=== PATIENT | female | born 2000 | race Two or more races ===

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

== ENCOUNTER 2022-09-10 23:20 | Emergency (ER) | payer SELFPAY ==
[~2022-09-10] VITALS: Ht 175.3 cm; Wt 60.0 kg
[2022-09-10 23:49] VITALS: BP 140/78
== END 2022-09-11 01:36 | disposition home or self-care (01) ==
LOC: ER 23:31
DX: Z53.21 Procedure and treatment not carried out due to patient leaving prior to being seen by health care provider (principal); J45.909 Unspecified asthma, uncomplicated

== ENCOUNTER 2022-11-11 06:11 | Observation (INO) | payer SELFPAY ==
[~2022-11-11] VITALS: Ht 175.3 cm; Wt 65.8 kg
[2022-11-11] MEDS ORDERED: PREN-52 MT (13:33)
== END 2022-11-11 10:30 | disposition home or self-care (01) ==
LOC: ER 06:26 → 8 EST LDRP 06:29
PROVIDERS: ADMIT Obstetrics & Gynecology; ATTEND Obstetrics & Gynecology
DX: O26.892 Other specified pregnancy related conditions, second trimester (principal); R10.30 Lower abdominal pain, unspecified; O36.8120 Decreased fetal movements, second trimester, not applicable or unspecified; O26.852 Spotting complicating pregnancy, second trimester; Z3A.26 26 weeks gestation of pregnancy; Z79.899 Other long term (current) drug therapy
CPT/HCPCS: 59025; 76805; G0378; 99281

== ENCOUNTER 2023-06-25 13:05 | Emergency (ER) | payer MEDICAID ==
[~2023-06-25] VITALS: Ht 170.2 cm; Wt 49.0 kg
[~2023-06-25 13:05] MED LIST: PREN-52 MT
[2023-06-25 13:14] VITALS: O2SAT 100
[2023-06-25 15:01] LABS: CHLORIDE 105 mEq/L (98-107); INDEX HEMOLYSI 1 (1-3); INDEX ICTERIC 1 (1-4); INDEX LIPEMIC 1 (1-3); POTASSIUM 3.2 mEq/L (3.5-5.1); SODIUM 138 mEq/L (136-145)
[2023-06-25 15:06] LABS: BASOPHILS % 2.6 % (0.0-2.0); EOSINOPHILS % 2.8 % (0.0-5.0); HEMATOCRIT. 31.4 % (36.0-48.0); HEMOGLOBIN. 10.5 g/dL (12.0-16.0); MEAN CORPUSCULAR HEMOGLOBIN 29.7 pg (28.0-32.0); MEAN CORPUSCULAR HGB CONC 33.6 g/dL (31.0-37.0); MEAN CORPUSCULAR VOLUME 88.5 fL (81.0-99.0); MEAN PLATELET VOLUME 8.1 fl (7.4-10.4); MONOCYTES % 10.2 % (2.0-8.0); NEUTROPHILS % 26.4 % (40.0-76.0); PLATELET 309 x1000/uL (130-400); RED BLOOD CELL COUNT 3.55 mill/uL (4.2-5.4); RED CELL DISTRIBUTION WIDTH 15.8 % (11.6-14.6); WHITE BLOOD COUNT 3.9 x1000/uL (4.5-11.0)
[2023-06-25 15:12] LABS: ALANINE AMINOTRANSFERASE 36 IU/L (13-61); ALBUMIN 3.3 g/dL (3.4-5.0); ASPARTATE AMINOTRANSFERASE 21 IU/L (15-37); B-HCG QUANTITATIVE 99 mIU/mL (<3); BILIRUBIN TOTAL 0.3 mg/dL (0.1-1.0); CALCIUM 8.7 mg/dL (8.5-10.1); CARBON DIOXIDE 28 mEq/L (21-32); GLUCOSE 92 mg/dL (70-105); PROTEIN TOTAL 7.8 g/dL (6.0-8.3); UREA NITROGEN BLOOD 14 mg/dL (7-21)
[2023-06-25 17:22] VITALS: BP 125/79; PULSE 98; RESP 18; TEMP 98.5
== END 2023-06-25 17:24 | disposition home or self-care (01) ==
LOC: ER 13:13
DX: O20.0 Threatened abortion (principal); Z3A.01 Less than 8 weeks gestation of pregnancy
CPT/HCPCS: 36415; 76801; 80053; 84702; 85025; 86850; 86900; 99284

== ENCOUNTER 2023-08-21 14:03 | Emergency (ER) | payer MEDICAID ==
[~2023-08-21] VITALS: Ht 177.8 cm; Wt 58.0 kg
[2023-08-21 14:37] VITALS: O2SAT 100
[2023-08-21] MEDS ORDERED: TRAM50TA3 MT (17:21)
[2023-08-21] MEDS ORDERED: TRAMADOL 50MG TABLET PO NR ×2 (17:30→18:00)
[2023-08-21 18:07] VITALS: BP 110/68; PULSE 90; RESP 20; TEMP 98.2
== END 2023-08-21 18:19 | disposition home or self-care (01) ==
LOC: ER 14:03
DX: M25.461 Effusion, right knee (principal); Z88.6 Allergy status to analgesic agent; V03.10XA Pedestrian on foot injured in collision with car, pick-up truck or van in traffic accident, initial encounter; Y93.89 Activity, other specified; Y92.89 Other specified places as the place of occurrence of the external cause; Y99.8 Other external cause status
CPT/HCPCS: 73562; 99283; Z7610

== ENCOUNTER 2024-02-29 02:07 | Emergency (ER) | payer MEDICAID ==
[~2024-02-29] VITALS: Ht 172.7 cm; Wt 58.2 kg
[~2024-02-29 02:07] MED LIST changes: +TRAM50TA3 MT
[2024-02-29 02:30] LABS: EOSINOPHILS % 1.4 % (0.0-5.0); HEMOGLOBIN. 10.6 g/dL (12.0-16.0); LYMPHOCYTES % 35.6 % (20.0-50.0); MEAN CORPUSCULAR HEMOGLOBIN 30.8 pg (28.0-32.0); MEAN CORPUSCULAR HGB CONC 33.3 g/dL (31.0-37.0); MEAN CORPUSCULAR VOLUME 92.5 fL (81.0-99.0); MEAN PLATELET VOLUME 8.2 fl (7.4-10.4); PLATELET 229 x1000/uL (130-400); RED BLOOD CELL COUNT 3.46 mill/uL (4.2-5.4); RED CELL DISTRIBUTION WIDTH 14.1 % (11.6-14.6); WHITE BLOOD COUNT 5.5 x1000/uL (4.5-11.0)
[2024-02-29 02:35] LABS: CHLORIDE 102 mEq/L (98-107); POTASSIUM 3.7 mEq/L (3.5-5.1); SODIUM 137 mEq/L (136-145)
[2024-02-29 02:36] LABS: CALCIUM 9.1 mg/dL (8.7-10.4); CARBON DIOXIDE 27 mEq/L (21-32)
[2024-02-29 02:41] LABS: CREATININE 0.7 mg/dL (0.6-1.0); GLUCOSE 103 mg/dL (70-105); UREA NITROGEN BLOOD 15 mg/dL (9-23)
[2024-02-29 02:43] LABS: ALANINE AMINOTRANSFERASE 13 IU/L (10-49); ALBUMIN 3.7 g/dL (3.2-4.8); ASPARTATE AMINOTRANSFERASE 30 IU/L (<34)
[2024-02-29 02:44] LABS: BILIRUBIN TOTAL 0.3 mg/dL (0.1-1.0); PROTEIN TOTAL 6.9 g/dL (6.0-8.3)
[2024-02-29 03:04] LABS: BILIRUBIN DIRECT < 0.1 mg/dL (<=3.0)
[2024-02-29 03:24] VITALS: BP 115/73; PULSE 80; RESP 16; TEMP 98.1; O2SAT 100
[2024-02-29 03:47] LABS: CLARITY URINE CLEAR (CLEAR); COLOR URINE YELLOW (YELLOW); GLUCOSE URINE NEGATIVE (NEGATIVE); KETONES URINE NEGATIVE (NEGATIVE); LEUKOCYTE ESTERASE URINE TRACE (NEGATIVE); NITRITE URINE NEGATIVE (NEGATIVE); OCCULT BLOOD URINE NEGATIVE (NEGATIVE); PROTEIN URINE NEGATIVE (NEGATIVE); SPECIFIC GRAVITY URINE 1.022 (1.005-1.030); UROBILINOGEN URINE 0.2 E.U./dL (0.2-1.0)
[2024-02-29 04:51] LABS: SQUAMOUS EPITHELIAL CELL URINE 1+ /lpf (RARE/1+)
[2024-02-29 04:54] LABS: RBC URINE NONE SEEN /hpf (0-2)
[2024-02-29 04:55] LABS: BACTERIA URINE 1+; TRICHOMONAS URINE 1+
== END 2024-02-29 03:56 | disposition home or self-care (01) ==
LOC: ER 02:07
DX: O26.891 Other specified pregnancy related conditions, first trimester (principal); J45.909 Unspecified asthma, uncomplicated; D57.80 Other sickle-cell disorders without crisis; Z88.6 Allergy status to analgesic agent; Z3A.12 12 weeks gestation of pregnancy; Z88.8 Allergy status to other drugs, medicaments and biological substances; Z98.890 Other specified postprocedural states
CPT/HCPCS: 36415; 76801; 80048; 80076; 81003; 84702; 85025; 99284

== ENCOUNTER 2024-03-10 04:57 | Emergency (ER) | payer MEDICAID ==
[~2024-03-10] VITALS: Ht 180.3 cm; Wt 64.0 kg
[2024-03-10 05:03] VITALS: BP 116/74; TEMP 97.9; O2SAT 100
[2024-03-10 05:29] VITALS: PULSE 88; RESP 18
[2024-03-10] MEDS ORDERED: ALBUTEROL (0.5%) 2.5MG/0.5ML NEB HHN ONE (05:30)
[2024-03-10 05:31] LABS: BASOPHILS % 1.2 % (0.0-2.0); CLARITY URINE CLOUDY (CLEAR); COLOR URINE YELLOW (YELLOW); EOSINOPHILS % 1.4 % (0.0-5.0); GLUCOSE URINE NEGATIVE (NEGATIVE); HEMATOCRIT. 32.4 % (36.0-48.0); KETONES URINE NEGATIVE (NEGATIVE); LEUKOCYTE ESTERASE URINE 1+ (NEGATIVE); MEAN CORPUSCULAR HEMOGLOBIN 31.3 pg (28.0-32.0); MEAN CORPUSCULAR HGB CONC 33.9 g/dL (31.0-37.0); MEAN CORPUSCULAR VOLUME 92.2 fL (81.0-99.0); MEAN PLATELET VOLUME 8.5 fl (7.4-10.4); MONOCYTES % 9.5 % (2.0-8.0); NEUTROPHILS % 57.9 % (40.0-76.0); NITRITE URINE NEGATIVE (NEGATIVE); OCCULT BLOOD URINE NEGATIVE (NEGATIVE); PH URINE 5.5 (4.5-8.0); PLATELET 278 x1000/uL (130-400); PROTEIN URINE NEGATIVE (NEGATIVE); RED BLOOD CELL COUNT 3.51 mill/uL (4.2-5.4); RED CELL DISTRIBUTION WIDTH 13.3 % (11.6-14.6); SPECIFIC GRAVITY URINE 1.029 (1.005-1.030); UROBILINOGEN URINE 0.2 E.U./dL (0.2-1.0); WHITE BLOOD COUNT 7.5 x1000/uL (4.5-11.0)
[2024-03-10 05:36] LABS: CHLORIDE 102 mEq/L (98-107); POTASSIUM 3.6 mEq/L (3.5-5.1); SODIUM 133 mEq/L (136-145)
[2024-03-10 05:37] LABS: CALCIUM 9.1 mg/dL (8.7-10.4); CARBON DIOXIDE 25 mEq/L (21-32)
[2024-03-10 05:42] LABS: CREATININE 0.6 mg/dL (0.6-1.0); GLUCOSE 86 mg/dL (70-105); UREA NITROGEN BLOOD 12 mg/dL (9-23)
[2024-03-10 05:44] LABS: ALANINE AMINOTRANSFERASE 11 IU/L (10-49); ALBUMIN 4.2 g/dL (3.2-4.8); ASPARTATE AMINOTRANSFERASE 17 IU/L (<34); BILIRUBIN TOTAL 0.3 mg/dL (0.1-1.0); PROTEIN TOTAL 7.6 g/dL (6.0-8.3)
[2024-03-10 06:23] LABS: SQUAMOUS EPITHELIAL CELL URINE 1+ /lpf (RARE/1+)
[2024-03-10 06:24] LABS: BACTERIA URINE TRACE; MUCUS URINE 2+ /lpf (< = 2+)
== END 2024-03-10 07:17 | disposition left against medical advice (07) ==
LOC: ER 05:06
DX: O26.899 Other specified pregnancy related conditions, unspecified trimester (principal); O99.011 Anemia complicating pregnancy, first trimester; J45.909 Unspecified asthma, uncomplicated; Z3A.13 13 weeks gestation of pregnancy; Z88.6 Allergy status to analgesic agent
CPT/HCPCS: 36415; 76801; 80053; 81003; 81025; 85025; 99284

== ENCOUNTER 2024-04-13 04:10 | Emergency (ER) | payer MEDICAID ==
[~2024-04-13] VITALS: Ht 180.3 cm; Wt 62.5 kg
[2024-04-13 04:16] VITALS: BP 119/74; RESP 15; TEMP 98.7; O2SAT 98
[2024-04-13 04:19] VITALS: PULSE 102
[2024-04-13 04:37] LABS: BASOPHILS % 0.9 % (0.0-2.0); EOSINOPHILS % 2.7 % (0.0-5.0); HEMATOCRIT. 33.1 % (36.0-48.0); LYMPHOCYTES % 31.3 % (20.0-50.0); MEAN CORPUSCULAR HEMOGLOBIN 31.2 pg (28.0-32.0); MEAN CORPUSCULAR HGB CONC 33.2 g/dL (31.0-37.0); MEAN CORPUSCULAR VOLUME 94.2 fL (81.0-99.0); MEAN PLATELET VOLUME 8.4 fl (7.4-10.4); MONOCYTES % 10.8 % (2.0-8.0); NEUTROPHILS % 54.3 % (40.0-76.0); PLATELET 189 x1000/uL (130-400); RED BLOOD CELL COUNT 3.51 mill/uL (4.2-5.4); RED CELL DISTRIBUTION WIDTH 14.3 % (11.6-14.6); WHITE BLOOD COUNT 6.1 x1000/uL (4.5-11.0)
[2024-04-13 04:47] LABS: CHLORIDE 104 mEq/L (98-107); POTASSIUM 3.4 mEq/L (3.5-5.1); SODIUM 136 mEq/L (136-145)
[2024-04-13 04:48] LABS: CARBON DIOXIDE 27 mEq/L (21-32)
[2024-04-13 04:48] LABS: UCG KIT LOT# 840181; UCG SCREEN POSITIVE
[2024-04-13 04:49] LABS: CALCIUM 8.9 mg/dL (8.7-10.4)
[2024-04-13 04:49] LABS: CLARITY URINE CLEAR (CLEAR); COLOR URINE YELLOW (YELLOW); GLUCOSE URINE NEGATIVE (NEGATIVE); KETONES URINE TRACE (NEGATIVE); LEUKOCYTE ESTERASE URINE NEGATIVE (NEGATIVE); NITRITE URINE NEGATIVE (NEGATIVE); OCCULT BLOOD URINE NEGATIVE (NEGATIVE); PROTEIN URINE NEGATIVE (NEGATIVE); SPECIFIC GRAVITY URINE 1.025 (1.005-1.030)
[2024-04-13 04:53] LABS: CREATININE 0.7 mg/dL (0.6-1.0); GLUCOSE 68 mg/dL (70-105); UREA NITROGEN BLOOD 8 mg/dL (9-23)
== END 2024-04-13 09:35 | disposition left against medical advice (07) ==
LOC: ER 04:10
DX: O26.892 Other specified pregnancy related conditions, second trimester (principal); R10.30 Lower abdominal pain, unspecified; R51.9 Headache, unspecified; Z3A.18 18 weeks gestation of pregnancy; Z53.21 Procedure and treatment not carried out due to patient leaving prior to being seen by health care provider
CPT/HCPCS: 36415; 76805; 80048; 81003; 81025; 85025

== ENCOUNTER 2024-06-22 06:51 | Emergency (ER) | payer MEDICAID ==
[~2024-06-22] VITALS: Ht 165.1 cm; Wt 60.0 kg
[2024-06-22 06:57] VITALS: BP 116/71; PULSE 104; RESP 18; TEMP 98.1; O2SAT 99
[2024-06-22] MEDS ORDERED: PREDNISONE 20MG TABLET PO STA (06:57)
[2024-06-22] MEDS ORDERED: IPRATROPIUM BROMIDE (0.02%) 0.5MG/2.5ML NEB HHN STA (06:57)
[2024-06-22] MEDS ORDERED: ALBUTEROL (0.083%) 2.5MG/3ML NEB HHN STA (06:57)
== END 2024-06-22 07:16 | disposition left against medical advice (07) ==
LOC: ER 06:51
DX: O99.513 Diseases of the respiratory system complicating pregnancy, third trimester (principal); O26.892 Other specified pregnancy related conditions, second trimester; R06.02 Shortness of breath; Z88.6 Allergy status to analgesic agent; Z3A.28 28 weeks gestation of pregnancy
CPT/HCPCS: 99283

== ENCOUNTER 2024-07-11 09:49 | Emergency (ER) | payer MEDICAID ==
[~2024-07-11] VITALS: Ht 165.1 cm; Wt 70.0 kg
[2024-07-11 10:07] VITALS: O2SAT 99
[2024-07-11 10:37] LABS: BASOPHILS % 0.8 % (0.0-2.0); EOSINOPHILS % 3.2 % (0.0-5.0); HEMATOCRIT. 33.8 % (36.0-48.0); HEMOGLOBIN. 11.7 g/dL (12.0-16.0); LYMPHOCYTES % 30.2 % (20.0-50.0); MEAN CORPUSCULAR HEMOGLOBIN 32.6 pg (28.0-32.0); MEAN CORPUSCULAR HGB CONC 34.6 g/dL (31.0-37.0); MEAN CORPUSCULAR VOLUME 94.2 fL (81.0-99.0); MONOCYTES % 13.4 % (2.0-8.0); NEUTROPHILS % 52.4 % (40.0-76.0); PLATELET 192 x1000/uL (130-400); RED BLOOD CELL COUNT 3.59 mill/uL (4.2-5.4); RED CELL DISTRIBUTION WIDTH 13.2 % (11.6-14.6); WHITE BLOOD COUNT 6.1 x1000/uL (4.5-11.0)
[2024-07-11 10:44] LABS: CHLORIDE 103 mEq/L (98-107); POTASSIUM 3.7 mEq/L (3.5-5.1); SODIUM 137 mEq/L (136-145)
[2024-07-11 10:45] LABS: CALCIUM 8.6 mg/dL (8.7-10.4); CARBON DIOXIDE 28 mEq/L (21-32)
[2024-07-11 10:50] LABS: CREATININE 0.6 mg/dL (0.6-1.0); GLUCOSE 96 mg/dL (70-105)
[2024-07-11 10:52] LABS: ALANINE AMINOTRANSFERASE 8 IU/L (10-49); ALBUMIN 3.4 g/dL (3.2-4.8); ASPARTATE AMINOTRANSFERASE 14 IU/L (<34)
[2024-07-11 10:53] LABS: BILIRUBIN TOTAL 0.3 mg/dL (0.1-1.0); PROTEIN TOTAL 6.3 g/dL (6.0-8.3)
[2024-07-11 10:55] LABS: BILIRUBIN DIRECT < 0.1 mg/dL (<=3.0); UREA NITROGEN BLOOD < 5 mg/dL (9-23)
[2024-07-11] MEDS: ACETAMINOPHEN 325MG TABLET PO ONE (10:56)
[2024-07-11] MEDS: SODIUM CHLORIDE 0.9% 1,000 ML IV ONE (10:56)
[2024-07-11 11:09] VITALS: BP 128/64; PULSE 85; RESP 16; TEMP 36.78072; O2SAT 100
[2024-07-11 11:19] LABS: B-HCG QUANTITATIVE 17929 mIU/mL (<3)
== END 2024-07-11 11:27 | disposition home or self-care (01) ==
LOC: ER 09:49
DX: O26.893 Other specified pregnancy related conditions, third trimester (principal); O99.513 Diseases of the respiratory system complicating pregnancy, third trimester; J45.909 Unspecified asthma, uncomplicated; Z3A.37 37 weeks gestation of pregnancy; Z88.6 Allergy status to analgesic agent
CPT/HCPCS: 99285; 96360; 76805; 80076; 80048; 81025; 84702; 85025; 86850; 86900; 86901; 36415; J7030

== ENCOUNTER 2024-11-17 16:16 | Emergency (ER) | payer MEDICAID ==
[~2024-11-17] VITALS: Ht 172.7 cm; Wt 62.0 kg
[2024-11-17 16:17] VITALS: O2SAT 99
[2024-11-17 16:55] VITALS: BP 110/64; PULSE 85; RESP 16; TEMP 36.7; O2SAT 97
[2024-11-17] MEDS: LEVETIRACETAM 1000MG PREMIX 100 ML IV ONE (17:19)
[2024-11-17 17:34] LABS: CLARITY URINE CLOUDY (CLEAR); COLOR URINE YELLOW (YELLOW); GLUCOSE URINE NEGATIVE (NEGATIVE); KETONES URINE NEGATIVE (NEGATIVE); LEUKOCYTE ESTERASE URINE TRACE (NEGATIVE); NITRITE URINE NEGATIVE (NEGATIVE); OCCULT BLOOD URINE NEGATIVE (NEGATIVE); PH URINE 5.5 (4.5-8.0); PROTEIN URINE TRACE (NEGATIVE); SPECIFIC GRAVITY URINE 1.007 (1.005-1.030); UROBILINOGEN URINE 0.2 E.U./dL (0.2-1.0)
[2024-11-17 17:49] LABS: BASOPHILS % 3.2 % (0.0-2.0); EOSINOPHILS % 4.2 % (0.0-5.0); HEMATOCRIT. 39.7 % (36.0-48.0); HEMOGLOBIN. 12.7 g/dL (12.0-16.0); LYMPHOCYTES % 52.2 % (20.0-50.0); MEAN CORPUSCULAR HEMOGLOBIN 28.9 pg (28.0-32.0); MEAN CORPUSCULAR HGB CONC 31.9 g/dL (31.0-37.0); MEAN CORPUSCULAR VOLUME 90.4 fL (81.0-99.0); MEAN PLATELET VOLUME 8.5 fl (7.4-10.4); NEUTROPHILS % 32.4 % (40.0-76.0); PLATELET 248 x1000/uL (130-400); RED CELL DISTRIBUTION WIDTH 14.1 % (11.6-14.6); WHITE BLOOD COUNT 4.2 x1000/uL (4.5-11.0)
[2024-11-17 17:54] LABS: CHLORIDE 103 mEq/L (98-107); POTASSIUM 4.1 mEq/L (3.5-5.1); SODIUM 139 mEq/L (136-145)
[2024-11-17 17:55] LABS: CARBON DIOXIDE 28 mEq/L (21-32)
[2024-11-17 17:56] LABS: CALCIUM 9.3 mg/dL (8.7-10.4)
[2024-11-17 17:57] LABS: *AMPHETAMINES SCREEN URINE PRESUMPTIVE POSITIVE (NEGATIVE); *BARBITURATES SCREEN URINE NEGATIVE (NEGATIVE); *BENZODIAZEPINES SCREEN URINE NEGATIVE (NEGATIVE); *COCAINE SCREEN URINE NEGATIVE (NEGATIVE); CANNABINOID URINE SCREEN PRESUMPTIVE POSITIVE (NEGATIVE); METHADONE URINE SCREEN NEGATIVE (NEGATIVE); OPIATES URINE SCREEN NEGATIVE (NEGATIVE); PHENCYCLIDINE URINE SCREEN NEGATIVE (NEGATIVE)
[2024-11-17 17:58] LABS: ECSTASY MDMA SCREEN URINE CONF.TEST INDICATED (NEGATIVE)
[2024-11-17 18:00] LABS: GLUCOSE 85 mg/dL (70-105); UREA NITROGEN BLOOD 14 mg/dL (9-23)
[2024-11-17 18:07] LABS: ETHANOL BLOOD < 10 mg/dL (<10)
[2024-11-17 18:19] LABS: BACTERIA URINE NONE SEEN; RBC URINE NONE SEEN /hpf (0-2); SQUAMOUS EPITHELIAL CELL URINE RARE /lpf (RARE/1+); WBC URINE 0-2 /hpf (0-2)
== END 2024-11-17 21:37 | disposition left against medical advice (07) ==
LOC: ER 16:16
DX: G40.909 Epilepsy, unspecified, not intractable, without status epilepticus (principal); J45.909 Unspecified asthma, uncomplicated; F12.90 Cannabis use, unspecified, uncomplicated; Z79.899 Other long term (current) drug therapy; Z88.6 Allergy status to analgesic agent
CPT/HCPCS: 80305; 80048; 81003; 80320; 85025; 36415; 70450; 96365; 99285; J1953; G0480